=== PATIENT | male | born 1945 | race Hispanic/Latino ===

== ENCOUNTER → 2017-09-11 | Outpatient (CLI) | payer OTHER, MEDICARE | END | disposition home or self-care (01) | LOC: RAH 07:53 | PROVIDERS: ATTEND Physical Medicine & Rehabilitation | DX: M47.26 Other spondylosis with radiculopathy, lumbar region (principal); M47.897 Other spondylosis, lumbosacral region; M41.86 Other forms of scoliosis, lumbar region | CPT/HCPCS: 72100 ==

== ENCOUNTER 2018-05-07 16:26 | Emergency (ER) | payer MEDICARE, OTHER ==
[2018-05-07 17:17] LABS: BASOPHILS % (AUTO) 1.1 % (0.0-5.0); EOSINOPHILS % (AUTO) 4.1 % (0.0-8.0); HEMATOCRIT 41.2 % (42-54); MEAN CORPUSCULAR HEMOGLOBIN 28.6 pg (27.0-33.0); MEAN CORPUSCULAR HGB CONC 32.9 g/dL (32.0-36.0); MONOCYTES % (AUTO) 11.7 % (3.0-13.0); NEUTROPHILS % (AUTO) 55.1 % (40.0-77.0); PLATELET COUNT (AUTO) 309 K/uL (130-400); RED BLOOD CELL COUNT(AUTO) 4.73 MIL/uL (4.50-6.20); RED CELL DISTRIBUTION WIDTH 14.4 % (11.0-15.5); WHITE BLOOD COUNT (AUTO) 8.9 K/uL (4.8-10.8)
[2018-05-07 17:31] LABS: CREATININE 1.4 mg/dL (0.5-1.5); POTASSIUM 4.7 mmol/L (3.5-5.1)
[2018-05-07 17:32] LABS: ALBUMIN 3.1 g/dL (3.5-5.0); BILIRUBIN,TOTAL 0.8 mg/dL (0.2-1.0); CRP QUANTITATIVE 175.1 mg/L (0.00-9.0); TOTAL PROTEIN, SERUM 7.7 g/dL (6.0-8.3)
[2018-05-07 18:19] LABS: ERYTHROCYTE SEDIMENTATION RATE 80 MM/HR (0-20)
== END 2018-05-07 19:20 | disposition home or self-care (01) ==
LOC: EDH 16:26
DX: M79.672 Pain in left foot (principal); I10 Essential (primary) hypertension; I25.10 Atherosclerotic heart disease of native coronary artery without angina pectoris
CPT/HCPCS: 36415; 73630; 80053; 84550; 85025; 85651; 86140; 96374

== ENCOUNTER 2022-05-28 10:13 | Emergency (ER) | payer MEDICARE, OTHER ==
[~2022-05-28] VITALS: Ht 175.3 cm; Wt 111.1 kg
[2022-05-28 10:44] LABS: BASOPHILS % (AUTO) 0.5 % (0.0-5.0); EOSINOPHILS % (AUTO) 0.1 % (0.0-8.0); LYMPHOCYTES % (AUTO) 14.9 % (21.0-51.0); MEAN CORPUSCULAR HEMOGLOBIN 29.4 pg (27.0-33.0); MEAN CORPUSCULAR HGB CONC 33.1 g/dL (32.0-36.0); MEAN CORPUSCULAR VOLUME 88.7 fL (79-99); MONOCYTES % (AUTO) 10.3 % (3.0-13.0); NEUTROPHILS % (AUTO) 73.6 % (40.0-77.0); PLATELET COUNT (AUTO) 191 K/uL (130-400); RED BLOOD CELL COUNT(AUTO) 6.09 MIL/uL (4.50-6.20); RED CELL DISTRIBUTION WIDTH 13.3 % (11.0-15.5); WHITE BLOOD COUNT (AUTO) 15.4 K/uL (4.8-10.8)
[2022-05-28] MEDS ORDERED: CEFTRIAXONE 2GM VIAL IVP STA (10:53)
[2022-05-28 10:54] LABS: POTASSIUM 4.9 mmol/L (3.5-5.1)
[2022-05-28] MEDS ORDERED: 0.9%NACL 1000ML IV ONE (10:57)
[2022-05-28 10:59] LABS: ALBUMIN 3.9 g/dL (3.5-5.0); TOTAL PROTEIN, SERUM 8.6 g/dL (6.0-8.3)
[2022-05-28] MEDS ORDERED: ACETAMINOPHEN 500 MG TABLET PO ONE (11:00)
[2022-05-28] MEDS ORDERED: 0.9%NACL 1000ML 1,413 ML IV ONE (11:00)
[2022-05-28 11:01] LABS: CREATININE 1.7 mg/dL (0.5-1.5)
[2022-05-28 11:13] LABS: B-TYPE NATRIURETIC PEPTIDE 16 pg/mL (0-100)
[2022-05-28] MEDS ORDERED: CEPH500B PO (13:06)
[2022-05-28] MEDS ORDERED: NAPR375T6 PO (13:06)
[2022-05-28 14:00] VITALS: BP 141/84
== END 2022-05-28 14:19 | disposition home or self-care (01) ==
LOC: EDH 10:13
DX: L03.116 Cellulitis of left lower limb (principal); E11.9 Type 2 diabetes mellitus without complications; E78.00 Pure hypercholesterolemia, unspecified; I10 Essential (primary) hypertension; Z20.822 Contact with and (suspected) exposure to COVID-19
CPT/HCPCS: 99285; 96374; 96361 ×2; 71045; 87635; 84484; 80053; 83880; 85025; 87040 ×2; 87804 ×2; 83605; 36415; 73630; 93005; C9803; J7030; J0696